=== PATIENT | male | born 1990 | race Caucasian/White ===

== ENCOUNTER 2018-06-20 22:42 | Emergency (ER) | payer BC ==
[~2018-06-20] VITALS: Ht 177.8 cm; Wt 114.8 kg
[2018-06-21] MEDS ORDERED: PEPCID20 MG PO (00:05)
[2018-06-21] MEDS ORDERED: ZOFRAN ODT4 MG PO (00:05)
[2018-06-21] MEDS ORDERED: CARAFATE 1 GM TA1 GM PO (00:05)
[2018-06-21 00:15] VITALS: BP 140/98
== END 2018-06-21 00:15 | disposition home or self-care (01) ==
LOC: EDSEX 22:42 → M.ERS 22:42
DX: R10.13 Epigastric pain (principal); R11.10 Vomiting, unspecified; F17.210 Nicotine dependence, cigarettes, uncomplicated; Z88.2 Allergy status to sulfonamides